=== PATIENT | male | born 1990 | race Caucasian/White ===

== ENCOUNTER 2016-12-03 17:30 | Emergency (ER) | payer MEDICARE, MEDICAID ==
[~2016-12-03] VITALS: Ht 175.3 cm; Wt 99.8 kg
[2016-12-03 18:48] LABS: Basophils # (auto) 0 uL; Basophils % (auto) 0.4 % (0.0-2.0); Eosinophils # (auto) 0.2 uL; Eosinophils % (auto) 2.5 % (0.0-7.0); Hematocrit 45.3 % (41.0-53.0); Hemoglobin 14.9 g/dL (13.5-17.5); Lymphocytes # (auto) 1.6 uL; Mean Corpuscular Hgb Conc. 32.9 g/dL (32.0-36.0); Mean Corpuscular Volume 91.1 fL (80.0-100.0); Monocytes # (auto) 0.9 uL; Monocytes % (auto) 11.6 % (0.0-12.0); Neutrophils # (auto) 5.2 uL; Neutrophils % (auto) 65.5 % (37.0-80.0); Platelet Count (auto) 231 10^3/uL (140-450); Red Cell Distribution Width 12.6 % (11.6-16.0)
[2016-12-03 19:03] LABS: Acetaminophen < 2.0 ug/mL (10-30); Salicylate 1.7 mg/dL (2.8-20.0)
[2016-12-03 19:10] LABS: Albumin 3.5 g/dL (3.4-5.0); Alkaline Phosphatase 58 U/L (45-117); Anion Gap 9 (5-15); Aspartate Aminotransferase 34 U/L (15-37); BUN/Creatinine Ratio 12.6; Bilirubin, Total 0.2 mg/dL (0.2-1.0); Blood Urea Nitrogen 11 mg/dL (7-18); Calcium 8.8 mg/dL (8.5-10.1); Carbon Dioxide 27 mmol/L (21-32); Chloride 107 mmol/L (98-107); GFR African American 134 mL/min; GFR Non-African American 111 mL/min; Glucose 92 mg/dL (74-106); Magnesium 2.3 mg/dL (1.6-2.6); Sodium 143 mmol/L (136-145); Total Protein 6.9 g/dL (6.4-8.2)
[2016-12-03 20:49] LABS: Urine Bilirubin Negative (Negative); Urine Blood Negative /uL (Negative); Urine Color Yellow (Yellow); Urine Glucose Normal (Normal); Urine Nitrite Negative (Negative); Urine RBC <1 /hpf (0 - 3); Urine Urobilinogen Normal (Negative)
[2016-12-03 20:50] LABS: Urine Ketone 1+ (Negative)
[2016-12-04 07:28] VITALS: BP 115/72
== END 2016-12-04 11:34 | disposition home or self-care (01) ==
LOC: ER 17:30
DX: F32.9 Major depressive disorder, single episode, unspecified (principal); F20.9 Schizophrenia, unspecified; F41.9 Anxiety disorder, unspecified; F12.10 Cannabis abuse, uncomplicated
CPT/HCPCS: 36415; 71010; 80053; 80320; 80329; 81001; 83735; 85025; 93005; 94761; 99285; G0434; J7030

== ENCOUNTER 2023-07-09 23:42 | Emergency (ER) | payer MEDICARE, MEDICAID ==
[~2023-07-09] VITALS: Ht 165.1 cm; Wt 70.7 kg
[2023-07-10 00:17] LABS: Basophils # (auto) 0.1 10 ^3/uL (0-0.2); Basophils % (auto) 0.7 % (0.0-2.0); Eosinophils # (auto) 0.1 10 ^3/uL (0-0.8); Eosinophils % (auto) 1.7 % (0.0-7.0); Hematocrit 47.9 % (41.0-53.0); Hemoglobin 16.8 g/dL (13.5-17.5); Lymphocytes # (auto) 2.5 10 ^3/uL (0.4-5.4); Lymphocytes % (auto) 28.2 % (10.0-50.0); Mean Corpuscular Hemoglobin 31.9 pg (28.0-32.0); Mean Corpuscular Hgb Conc. 35.1 g/dL (32.0-36.0); Mean Corpuscular Volume 90.9 fL (80.0-100.0); Monocytes # (auto) 0.8 10 ^3/uL (0-1.3); Monocytes % (auto) 9.2 % (0.0-12.0); Neutrophils # (auto) 5.4 10 ^3/uL (1.6-8.6); Neutrophils % (auto) 60.2 % (37.0-80.0); Nucleated Red Blood Cells % 2.1 %; Red Blood Cells 5.26 10^6/uL (4.5-5.90); Red Cell Distribution Width 13.5 % (11.8-14.3)
[2023-07-10 00:38] LABS: Acetaminophen < 2.0 UG/ML (10.0-20.0); Alanine Aminotransferase 27 U/L (7-40); Albumin 5.1 g/dL (3.2-4.8); Alkaline Phosphatase 80 U/L (46-116); Anion Gap 9 (5-15); Aspartate Aminotransferase 37 U/L (13-40); BUN/Creatinine Ratio 13.8 (10.0-20.0); Bilirubin, Total 1.2 mg/dL (0.2-1.0); Blood Alcohol 7.1 mg/dL (<10); Blood Urea Nitrogen 13 mg/dL (9-23); Calcium 9.8 mg/dL (8.7-10.4); Carbon Dioxide 28 mmol/L (20-30); Chloride 102 mmol/L (98-107); Glucose 91 mg/dL (74-106); Potassium 3.8 mmol/L (3.5-5.1); Sodium 139 mmol/L (136-145)
[2023-07-10 00:40] VITALS: PULSE 88; RESP 18; O2SAT 99
[2023-07-10 00:41] LABS: Salicylate < 3.0 mg/dL (2.8-20.0)
[2023-07-10 01:19] LABS: Urine Bacteria NONE SEEN /hpf (None Seen); Urine Blood Negative /uL (Negative); Urine Clarity Clear (Clear); Urine Color Yellow (Yellow); Urine Mucus FEW (None Seen); Urine Protein, UAD 1+ (Negative); Urine Specific Gravity 1.035 (1.001-1.035); Urine WBC 2 /hpf (0 - 3)
[2023-07-10 01:32] LABS: Amphetamine Screen, Urine Pos (NEGATIVE); Barbiturate Scree,Urine Neg (NEGATIVE); Benzodiazephine Screen, Urine Neg (NEGATIVE); Cannabinoid Screen, Urine Pos (NEGATIVE); Cocaine Screen, Urine Neg (NEGATIVE); Opiate Scree,Urine Neg (NEGATIVE); Phencyclidine Screen, Urine Neg (NEGATIVE)
[2023-07-10] MEDS ORDERED: FLUoxetine HCL 20 MG CAP PO ONE (16:00)
[2023-07-10] MEDS ORDERED: OLANZapine 5 MG TAB PO ONE (22:00)
[2023-07-10] MEDS: OLANZapine 5 MG TAB PO SCH (23:52)
[2023-07-11 07:28] VITALS: PULSE 78; O2SAT 98
[2023-07-11] MEDS: FLUoxetine HCL 20 MG CAP PO SCH (10:00)
[2023-07-11] MEDS: OLANZapine 5 MG TAB PO SCH ×2 (10:00→22:00)
[2023-07-11 11:10] LABS: COVID19 ANTIGEN SOFIA FIA NEGATIVE (NEGATIVE)
[2023-07-11 20:31] VITALS: PULSE 88; RESP 18; O2SAT 98
[2023-07-12] MEDS: FLUoxetine HCL 20 MG CAP PO SCH (10:43)
[2023-07-12] MEDS: OLANZapine 5 MG TAB PO SCH (10:43)
[2023-07-12 10:48] VITALS: RESP 18
[2023-07-13] MEDS: OLANZapine 5 MG TAB PO SCH ×2 (02:08→10:51)
[2023-07-13 02:09] VITALS: PULSE 61; RESP 14; O2SAT 98
[2023-07-13] MEDS: FLUoxetine HCL 20 MG CAP PO SCH (10:51)
[2023-07-13 20:30] VITALS: BP 109/80; TEMP 98.1
[2023-07-13 20:32] VITALS: PULSE 77; RESP 16; O2SAT 98
== END 2023-07-13 21:32 | disposition short-term general hospital (02) ==
LOC: ER 23:42
DX: R45.851 Suicidal ideations (principal); F32.9 Major depressive disorder, single episode, unspecified; F12.10 Cannabis abuse, uncomplicated; R44.3 Hallucinations, unspecified; Z20.822 Contact with and (suspected) exposure to COVID-19
CPT/HCPCS: 36415; 80053; 80307; 80320; 80329; 81001; 85025; 87426